=== PATIENT | male | born 1990 | race Caucasian/White ===

== ENCOUNTER 2022-01-02 13:27 | Outpatient (REF) | payer MEDICAID, SELFPAY ==
[2022-01-02 13:58] LABS: COVID-19 Test Negative (Negative)
== END 2022-01-02 13:28 | disposition home or self-care (01) ==
LOC: HO.LAB 13:27
PROVIDERS: Visit Provider Internal Medicine
DX: Z20.822 Contact with and (suspected) exposure to COVID-19 (principal)
CPT/HCPCS: 87635; C9803

== ENCOUNTER 2022-05-26 13:29 | Outpatient (REF) | payer MEDICAID, SELFPAY ==
[2022-05-26 14:05] LABS: COVID-19 Test Negative (Negative); IDNOW Serial# 08D9AD1C
== END 2022-05-26 13:30 | disposition home or self-care (01) ==
LOC: HO.LAB 13:29
PROVIDERS: Visit Provider Internal Medicine
DX: Z20.822 Contact with and (suspected) exposure to COVID-19 (principal)
CPT/HCPCS: 87635; C9803